=== PATIENT | female | born 1980 | race Caucasian/White ===

== ENCOUNTER → 2017-01-28 | Outpatient (CLI) | payer BC ==
--- NOTE | 2017-01-29 12:19 | RADRPT ---
PROCEDURE: I - 123 thyroid uptake and scan CLINICAL INDICATION: 36 -year-old patient with hyperthyroidism. TECHNIQUE: Following the oral administration of 0.60 mCi of I - 123, thyroid uptake and scan was o btained. COMPARISON: No prior thyroid scans. FINDINGS: 6 hours radioiodine uptake is 100 % (normal range is 5% - 20%). 24 hours radioiodine uptake is 95 % (normal range is 7% - 35%). The thyroid gland demonstrates an enlarged thyroid gland (approximately 2.5 x normal size) with diff usely increased homogeneous distribution of radionuclide throughout the thyroid gland. IMPRESSION: The scintigraphic pattern of the abnormalities is most compatible with Graves disease. RPTAT: HH .Ariadne Hilario MD, MD Date Time Electronically viewed and signed by .Ariadne Hilario MD, on 01/29/2017 12:19 .L/
== END | disposition home or self-care (01) ==
LOC: NUC 01-26 09:18
PROVIDERS: ATTEND Internal Medicine
DX: E05.00 Thyrotoxicosis with diffuse goiter without thyrotoxic crisis or storm (principal)
CPT/HCPCS: 78014; A9516

== ENCOUNTER → 2017-03-17 | Outpatient (CLI) | payer BC | END | disposition home or self-care (01) | LOC: NUC 13:57 | PROVIDERS: ATTEND Internal Medicine | DX: E05.00 Thyrotoxicosis with diffuse goiter without thyrotoxic crisis or storm (principal) ==